=== PATIENT | male | born 1985 | race Caucasian/White ===

== ENCOUNTER → 2016-10-03 | Outpatient (REF) | LOC: WSOH 13:40 | DX: Z02.4 Encounter for examination for driving license (principal) ==

== ENCOUNTER → 2016-10-05 | Outpatient (REF) | LOC: WSOH 13:47 | DX: Z02.89 Encounter for other administrative examinations (principal) ==

== ENCOUNTER → 2020-05-13 | Outpatient (CLI) | payer BC | LOC: COL.RAD 12:05 | DX: M54.6 Pain in thoracic spine (principal) ==

== ENCOUNTER → 2021-02-09 | Outpatient (CLI) | payer BC | LOC: COL.CARD 02-05 08:30 | DX: R03.0 Elevated blood-pressure reading, without diagnosis of hypertension (principal) ==